=== PATIENT | male | born 1945 | race Caucasian/White ===

== ENCOUNTER 2022-03-01 16:56 | Emergency (ER) | payer MEDICARE, SELFPAY ==
[2022-03-01 17:04] VITALS: BP 174/83; PULSE 74; RESP 19; TEMP 36.1; O2SAT 99; BMI 23.6
[2022-03-01] MEDS: ONDANSETRON 4 MG/2 ML INJ IV ×2 (17:30→20:10)
[2022-03-01 17:39] LABS: Add Manual Diff / Slide Review NO; Basophils Absolute Auto 100 /uL (0-100); Basophils Percent Auto 1.1 % (0-2); Eosinophils Absolute Auto 100 /uL (0-450); Eosinophils Percent Auto 1.6 % (2-4); Hematocrit 47.3 % (41-53); Hemoglobin 16.1 g/dL (13.5-17.5); Lymphocytes Absolute Auto 1600 /uL (1100-4500); Lymphocytes Percent Auto 23.3 % (25-40); Mean Corpuscular HGB Conc 34.1 % (30-36); Mean Corpuscular Volume 90.9 fL (80-100); Monocytes Absolute Auto 900 /uL (0-900); Neutrophils Absolute Auto 4300 /uL (1500-7000); Platelet Count 242 X10^3/uL (150-400); Red Blood Cell Count 5.21 X10^6/uL (4.5-5.9); Red Cell Distribution Width 13.1 % (11.6-14.8); White Blood Cell Count 7.1 X10^3/uL (4.5-11.0)
[2022-03-01 17:51] LABS: Alanine Aminotransferase 16 IU/L (<50); Albumin 4.6 g/dL (3.5-5.0); Albumin Globulin Ratio 1.6 (1.0-2.8); Alkaline Phosphatase 109 U/L (38-126); Aspartate Aminotransferase 25 IU/L (17-59); BUN Creatinine Ratio 31.9 (6-22); Bilirubin Total 0.7 mg/dL (0.2-1.3); Blood Urea Nitrogen 29 mg/dL (9-20); Calcium 9.4 mg/dL (8.4-10.2); Carbon Dioxide 20 mmol/L (22-32); Chloride 103 mmol/L (98-107); Estimated Glomerular Filt Rate > 60 mL/min (>60); Globulin 2.9 g/dL (1.7-4.1); Glucose 158 mg/dL (80-110); HEMOLYSIS < 15 (0-50); Lipase 104 U/L (23-300); Potassium 3.4 mmol/L (3.4-5.1); Sodium 138 mmol/L (137-145); Total Protein 7.5 g/dL (6.3-8.2)
--- NOTE | 2022-03-01 19:53 | ED.GENADULT ---
HPI - General Adult General Chief complaint: Abdominal Pain Stated complaint: bulging hernia Time Seen by Provider: 03/01/22 18:32 Source: patient Mode of arrival: Family Vehicle History of Present Illness HPI narrative: 77-year-old remarkably healthy gentleman on no medications with no significant medical history presents with acute right inguinal hernia pain. Approximately 3 years ago he had a left inguinal hernia repaired. Over the ensuing number of years he has noticed occasional right inguinal hernia that is always been easily reduced. This morning he was moving some law grounds felt the hernia in large significant pain and he has been unable to reduce the hernia. He has not passed any gas since that time. His pain has increased, he has been having increasing vomiting secondary to pain. His last meal was at noon today. He takes no medications. Related Data Allergies Allergy/AdvReac Type Severity Reaction Status Date / Time No Known Drug Allergies Allergy Verified 03/01/22 17:06 Review of Systems Review of Systems Narrative: Pertinent positive and negative findings as per HPI Remainder of review of systems is otherwise unremarkable for Constitutional: Fevers, chills, weakness ENT: No sore throat, neck pain, ear pain CV: Chest pain, palpitations, Respiratory: Cough, wheeze, dyspnea : Dysuria, hematuria, Patient History Medical History (Updated 03/01/22 @ 20:40 by Saniya Crawford MD) Left inguinal hernia Social History Smoking Status: Former smoker Smoking Status: Former smoker tobacco type: cigarettes alcohol intake frequency: 0-2 drinks per day Substance Use Type: does not use Exam Initial Vital Signs Initial Vital Signs: Vital Signs Temperature 96.9 F L 03/01/22 17:04 Pulse Rate 74 03/01/22 17:04 Respiratory Rate 19 03/01/22 17:04 Blood Pressure 174/83 H 03/01/22 17:04 Pulse Oximetry 99 03/01/22 17:04 Oxygen Delivery Method 03/01/22 17:04 General: Healthy appearing, in mild pain of able to give a complete and coherent history. Well-nourished well-developed HEENT: Moist mucous membranes, normal sclera with reactive pupils, Neck: No JVD, supple Respiratory: Lungs are clear to auscultation, no wheezing no rales no rhonchi. Full and symmetrical air movement Cardiac: Regular rate and rhythm no murmurs no bruits Abdomen: Tender with lower abdominal guarding, developing peritoneal signs, no bowel tones Groin, he has a moderate-sized incarcerated right inguinal hernia. Exquisitely tender, no obvious necrosis or infection. Unable to be reduced with bedside exam Skin: Warm and dry, no rashes Neurologic: Grossly neurologically intact with no obvious asymmetries or abnormalities Extremities: No trauma, well perfused Psych: Cooperative, appropriate insight and affect Course Orders Ordered: ED Orders 03/01/22 17:03 EKG-12 Lead Stat 03/01/22 17:25 Complete Blood Count AUTO DIFF Stat Comprehensive Metabolic Panel Stat Lipase Stat 03/01/22 19:20 COVID19 -Nasal RAPID/Pre-Proc Stat Hydromorphone HCl (Hydromorphone 0.5 Mg Inj) 0.5 mg IV Q15MIN PRN PRN Reason: Pain, Last Admin: 03/01/22 20:10 Dose: 0.5 mg Sodium Chloride (Normal Saline 0.9%) 1,000 mls @ 1,000 mls/hr IV BOLUS ONE Stop: 03/01/22 21:05 Last Admin: 03/01/22 20:09 Dose: 1,000 mls/hr Discontinued Medications Ondansetron HCl (Ondansetron 4 Mg/2 Ml Inj) 4 mg IV NOW ONE Stop: 03/01/22 17:21 Last Admin: 03/01/22 17:30 Dose: 4 mg Documented By: CRISTAL Ondansetron HCl (Ondansetron 4 Mg/2 Ml Inj) 4 mg IV NOW ONE Stop: 03/01/22 20:07 Last Admin: 03/01/22 20:10 Dose: 4 mg Vital Signs Vital signs: Vital Signs - 8 hr 03/01/22 17:04 Temperature 96.9 F L Pulse Rate 74 Respiratory Rate 19 Blood Pressure 174/83 H Pulse Oximetry 99 Oxygen Delivery Method Room Air Medical Decision Making Lab Data Result diagrams: 03/01/22 17:25 03/01/22 17:25 Labs: Lab Results 03/01/22 03/01/22 03/01/22 Range/Units 17:25 17:25 19:20 WBC 7.1 (4.5-11.0) X10^3/uL RBC 5.21 (4.5-5.9) X10^6/uL Hgb 16.1 (13.5-17.5) g/dL Hct 47.3 (41-53) % MCV 90.9 (80-100) fL MCH 31.0 (26-34) PG MCHC 34.1 (30-36) % RDW 13.1 (11.6-14.8) % Plt Count 242 (150-400) X10^3/uL Neut % (Auto) 61.0 (50-75) % Lymph % (Auto) 23.3 L (25-40) % Vance % (Auto) 13.0 (3-14) % Eos % (Auto) 1.6 L (2-4) % Baso % (Auto) 1.1 (0-2) % Neut # (Auto) 4300 (5896-8727) /uL Lymph # (Auto) 1600 (5141-1837) /uL Vance # (Auto) 900 (0-900) /uL Eos # (Auto) 100 (0-450) /uL Baso # (Auto) 100 (0-100) /uL Sodium 138 (137-145) mmol/L Potassium 3.4 (3.4-5.1) mmol/L Chloride 103 (98-107) mmol/L Carbon Dioxide 20 L (22-32) mmol/L BUN 29 H (9-20) mg/dL Creatinine 0.91 (0.66-1.25) mg/dL Estimated GFR > 60 (>60) mL/min BUN/Creatinine Ratio 31.9 H (6-22) Glucose 158 H (80-110) mg/dL Calcium 9.4 (8.4-10.2) mg/dL Total Bilirubin 0.7 (0.2-1.3) mg/dL AST 25 (17-59) IU/L ALT 16 (<50) IU/L Alkaline Phosphatase 109 (38-126) U/L Total Protein 7.5 (6.3-8.2) g/dL Albumin 4.6 (3.5-5.0) g/dL Globulin 2.9 (1.7-4.1) g/dL Albumin/Globulin Ratio 1.6 (1.0-2.8) Lipase 104 (23-300) U/L SARS-CoV-2 (PCR) Negative (Negative) Urine Dip Bedside Urine Glucose Negative Bedside Urine Bilirubin - Negative Bedside Urine Ketone - Negative Urine Specific Misenheimer 1.030 Bedside Urine Occult Blood - Negative Bedside Urine pH 6.0 Bedside Urine Protein - Negative Bedside Urine Urobilinogen - Negative Bedside Urine Nitrite - Negative Bedside Urine Leukocytes - Negative Esterase Point of care testing: Urine Dip Bedside Urine Glucose Negative Bedside Urine Bilirubin - Negative Bedside Urine Ketone - Negative Urine Specific Misenheimer 1.030 Bedside Urine Occult Blood - Negative Bedside Urine pH 6.0 Bedside Urine Protein - Negative Bedside Urine Urobilinogen - Negative Bedside Urine Nitrite - Negative Bedside Urine Leukocytes - Negative Esterase MDM Narrative Medical decision making narrative: Healthy 77-year-old gentleman with incarcerated right inguinal hernia for the last 2 hours with increasing abdominal pain, vomiting not passing gas and now developing increasing abdominal peritoneal signs. Case is reviewed with Dr. Angel, on-call surgeon. He will come and evaluate the patient prior to any additional imaging study at this point. Labs at this time ir reassuring. COVID study is been ordered. Last meal was at noon. 834pm patient was examined by Dr. Angel. With pain medication the hernia self reduced. Patient will be discharged home with a take-home pack of Percocet using case. Discussed finding a hernia truss online. Patient will follow-up outpatient with Dr. Angel for consideration of outpatient repair of his right inguinal hernia. Discharge Plan Departure Patient Disposition: Home Clinical Impression: Hernia, inguinal, right Instructions: Groin Hernia -- Adult Activity Restrictions/Additional Instructions: Thank you for coming in today I am very glad that with pain medication and relaxation the hernia was able to be reduced in the emergency department. Please schedule an outpatient follow-up with Dr. Angel at [facility], the clinic phone number is [phone] for further evaluation and outpatient treatment for your inguinal hernia I have given you a couple of tablets of Percocet to use for pain control if needed. If you do not need please do not use it. If you do, please take an additional stool softener to avoid constipation. Consider getting a hernia truss, online might be the fastest in the easiest way to do so. This is basically a band that helps hold pressure against the area so you do not have as much tenderness while you are waiting to get the hernia repaired. If you find that you are getting worse or develop any new symptoms, please feel free to return to the emergency department for further evaluation. Referrals: Mehul Bryant MD [Primary Care Provider] -
[2022-03-01] MEDS: SODIUM CHLORIDE 0.9% 1,000 ML 1000 ML IV (20:09)
[2022-03-01] MEDS: HYDROMORPHONE 0.5 MG INJ IV (20:10)
[2022-03-01 20:13] LABS: COVID19 -Nasal RAPID Negative (Negative)
--- NOTE | 2022-03-01 20:46 | P.HP_ITS ---
History of Present Illness History of Present Illness Date Patient Seen: 03/01/22 Time Patient Seen: 20:47 Chief complaint: bulging hernia Narrative: Pelon is a 77-year-old man who presents with a an incarcerated right inguinal hernia. He has had the hernia for a few years but had not been bothering him until recently and it had always been reducible. Today he was lifting heavy logs and it became much larger dropping into the scrotum and incarcerated. He reports that he had nausea and vomiting. He came to the ER today. After arriving to the ER and receiving some pain medications the hernia spontaneously reduced. He reports that he had a successful open left inguinal hernia repair many years ago. He is otherwise in good health. Patient History Medical History (Updated 03/01/22 @ 20:40 by Saniya Crawford MD) Left inguinal hernia Family & Social History Safety & Behavioral: Feels Safe in Current Yes Environment Been Physically Hurt or No Threatened By a Person Tobacco & Substance use: Smoking Status Former smoker alcohol intake frequency 0-2 drinks per day Substance Use Type does not use Meds Home Medications and Allergies Allergies Allergy/AdvReac Type Severity Reaction Status Date / Time No Known Drug Allergies Allergy Verified 03/01/22 17:06 Exam Vital Signs (past 8 hours): - 03/01/22 17:04 Temperature 96.9 F L Pulse Rate 74 Respiratory Rate 19 Blood Pressure 174/83 H Pulse Oximetry 99 Oxygen Delivery Method Room Air Oxygen Delivery Method Room Air Narrative Exam Narrative: The right inguinal region is tender to palpation but there is no obvious hernia. The patient is examined in the supine position Objective Labs Result Diagrams: 03/01/22 17:25 03/01/22 17:25 Labs: Laboratory Results - last 24 hr 03/01/22 03/01/22 03/01/22 17:25 17:25 19:20 WBC 7.1 RBC 5.21 Hgb 16.1 Hct 47.3 MCV 90.9 MCH 31.0 MCHC 34.1 RDW 13.1 Plt Count 242 Neut % (Auto) 61.0 Lymph % (Auto) 23.3 L [place] % (Auto) 13.0 Eos % (Auto) 1.6 L Baso % (Auto) 1.1 Neut # (Auto) 4300 Lymph # (Auto) 1600 [place] # (Auto) 900 Eos # (Auto) 100 Baso # (Auto) 100 Sodium 138 Potassium 3.4 Chloride 103 Carbon Dioxide 20 L BUN 29 H Creatinine 0.91 Estimated GFR > 60 BUN/Creatinine Ratio 31.9 H Glucose 158 H Calcium 9.4 Total Bilirubin 0.7 AST 25 ALT 16 Alkaline Phosphatase 109 Total Protein 7.5 Albumin 4.6 Globulin 2.9 Albumin/Globulin Ratio 1.6 Lipase 104 SARS-CoV-2 (PCR) Negative Assessment & Plan Assessment and plan (1) Hernia, inguinal, right: Status: Acute Plan Since his hernia has reduced he can be discharged home and will try to get him scheduled for an elective open right inguinal hernia repair in a short time frame. If he develops an incarcerated hernia again he should lay flat and try to relax his body as much as possible and once he is is relaxed as possible he can attempt to push the hernia back in. If he is unsuccessful he can return to the ER and a dose of IV pain medication should allow the hernia to reduce. We discussed the risks benefits and alternatives to open inguinal hernia repair with mesh and he would like to schedule the surgery. I will have my office contact him tomorrow during the day. Time Spent With Patient Critical Care time: I spent a total of [] minutes of critical care time on this patient's care today; this time is exclusive of procedural time.
[2022-03-01] MEDS: OXYCODONE/APAP 5/325 PREPACK 1 BOTTLE MISC (20:50)
[2022-03-01 20:55] VITALS: BP 122/77; PULSE 87; RESP 22; O2SAT 99
== END 2022-03-01 21:06 | disposition home or self-care (01) ==
PROVIDERS: Emergency Medicine; Emergency Provider Emergency Medicine; PCP Internal Medicine
DX: K40.90 Unilateral inguinal hernia, without obstruction or gangrene, not specified as recurrent (principal); Z20.822 Contact with and (suspected) exposure to COVID-19; R03.0 Elevated blood-pressure reading, without diagnosis of hypertension
CPT/HCPCS: 36415; 80053; 81003; 83690; 85025; 87635; 93005; 93010; 96361; 96374; 96375; 96376; 99284; C9803; J1170; J2405

== ENCOUNTER 2022-03-05 10:45 | Day surgery (SDC) | payer OTHER, SELFPAY ==
[2022-03-05] MEDS: LACTATED RINGERS 1,000 ML 84 ML IV ×2 (11:41→13:32)
[2022-03-05 11:52] VITALS: BP 176/99; PULSE 91; RESP 18; TEMP 36.7; O2SAT 98; BMI 23.6
[2022-03-05 11:54] LABS: COVID19 -Nasal RAPID Negative (Negative)
--- NOTE | 2022-03-05 12:40 | PM.PREOP ---
Pre-operative Note COVID-19 COVID-19 status: Negative Result date/Date tested (Pos, Neg/Pending): 03/05/22 Interval Note History & Physical reviewed/Exam performed by Physician: Yes Changes to H&P: No ASA Class (for procedural sedation): II
[2022-03-05] MEDS: CEFAZOLIN 2 GM/20 ML SYRINGE IV (13:00)
[2022-03-05] MEDS: LIDOCAINE 1% W/EPI 20 ML INJ (13:15)
[2022-03-05] MEDS: BUPIVACAINE 0.5% (PF) VIAL 30 ML INJ (13:16)
--- NOTE | 2022-03-05 13:20 | SUR.OPER ---
Supine on padded OR bed, head on pillow, arms secured on padded arm boards at <90 degrees abduction, legs uncrossed, safety belt at thigh, tape over blanket over lower legs. Gel pad placed under bilateral heels. Patients glasses placed in hospital provided black case with patient ID label and placed in patients belongings bag in pre-op.
--- NOTE | 2022-03-05 14:17 | P.OP_ITS ---
Operative Date/Time/Diagnoses Date of procedure: 03/05/22 Time of procedure: 14:17 Pre-op diagnosis: Right inguinal hernia Post-op diagnosis: same Procedure & Clinicians Procedure: Open right inguinal hernia repair with mesh Same procedure as scheduled: Yes Surgeon: Terry Angel Anesthesia Type: General Operative Notes Procedure in detail: Preoperative antibiotic was administered. The patient was brought to the operating room and placed on the table in supine position general anesthesia was induced. The right groin was prepped and draped in the normal fashion and a time-out was performed. Roughly 10 mL of local anesthetic were injected into the skin and subcutaneous adipose tissue over the right groin. A 6 cm incision was made over the right inguinal canal. Dissection was carried down through the subcutaneous adipose tissue. A bridging vein was cauterized. We exposed the external oblique aponeurosis in the direction of the fibers. Additional local was injected deep to the aponeurosis. A 15 blade scalpel was used to justine the external oblique aponeurosis. Metzenbaum scissors were used to carefully open the aponeurosis in the direction of the fibers taking care not to injure the underlying ilioinguinal nerve. We completely exposed the inguinal canal. The cord was dissected free from the inguinal ligament and floor of the inguinal canal and the external oblique aponeurosis was dissected off of the internal oblique taking care not to injure the hypogastric nerve. We encircled the cord with a [place] drain for retraction. There is a rather large indirect hernia sac. We dissected the sac off the cord structures using a combination of sharp and blunt dissection. We then fashioned a piece of polypropylene mesh to fit the inguinal canal floor. The mesh was secured with multiple interrupted 3-0 Prolene sutures to the pubic tubercle and shelving edge of the inguinal ligament as well as to the conjoint tendon medially. We cut a slit in the mesh and overlapped the tails to recreate an internal ring and secured the medial tail to the inguinal ligament with additional sutures. We injected some more local into the fatty tissue in the inguinal canal and cord. Finally, we removed the Maday drain and closed the external oblique fascia with a running 3-0 Vicryl suture. Skin was closed with interrupted 3-0 Vicryl dermal sutures and a running 4 Monocryl subcuticular stitch. EBL 5 mL The patient was awakened and brought to recovery room. Post-operative Condition: stable Disposition: PACU
[2022-03-05 14:25] VITALS: BP 158/99; PULSE 91; RESP 18; TEMP 36.5; O2SAT 94
[2022-03-05 14:29] VITALS: BP 153/98; PULSE 92; RESP 17; TEMP 36; O2SAT 95
[2022-03-05 14:34] VITALS: BP 150/97; PULSE 92; RESP 19; TEMP 36.7; O2SAT 93
[2022-03-05 15:55] VITALS: BP 157/97; PULSE 87; RESP 16; TEMP 36.6; O2SAT 97
--- NOTE | 2022-03-05 16:03 | SUR.PHASEII ---
Late entry: Pt ready to go, left in stable condition, refused need for pain meds.
== END 2022-03-05 15:00 | disposition home or self-care (01) ==
PROVIDERS: PCP Internal Medicine; Referring Provider Surgery; Visit Provider Surgery
PROC: (CPT 49505; principal; 2022-03-05 12:45)
DX: K40.90 Unilateral inguinal hernia, without obstruction or gangrene, not specified as recurrent (principal); Z20.822 Contact with and (suspected) exposure to COVID-19
CPT/HCPCS: 49505; 00830; 87635; C9803; J0690; J1885; J2250; J2704; J3010